=== PATIENT | female | born 1950 | race Caucasian/White ===

== ENCOUNTER → 2018-02-16 | Outpatient (CLI) | payer MEDICARE ==
[~2018-02-16] MED LIST: ASPI1TAB57 PO; LOSA50TA2 PO; PERC5TAB12 PO; ZOFR8TAB4 SL
[2018-02-16 13:50] LABS: BACTERIA, URINE OCC /hpf; BILIRUBIN, URINE NEG (NEG); BLOOD, URINE TRACE (NEG); GLUCOSE,URINE NEG (NEG); KETONE, URINE NEG (NEG); NITRITE,URINE NEG (NEG); SQUAMOUS EPITHELIAL CELL URINE 1 /hpf (0-5); URINE COLOR LIGHT-YELLOW (YELLW/STRAW); URINE LEUKOCYTE ESTERASE TRACE (NEG)
[2018-02-16 13:50] LABS: AUTOMATED NEUTROPHIL # 3.8 TH/MM3 (1.8-7.7); BASOPHIL % 0.7 % (0.0-2.0); EOSINOPHIL # 0.2 TH/MM3 (0-0.4); EOSINOPHIL % 2.6 % (0.0-4.0); HEMATOCRIT 41.3 % (35.0-46.0); HEMOGLOBIN 14.1 GM/DL (11.6-15.3); LYMPH % 33.3 % (9.0-44.0); LYMPHOCYTE # 2.3 TH/MM3 (1.0-4.8); MEAN CELL VOLUME 91.5 FL (80.0-100.0); MEAN CORPUSCULAR HEMOGLOBIN 31.2 PG (27.0-34.0); MEAN CORPUSCULAR HGB CONC 34.1 % (32.0-36.0); MONO % 8.7 % (0.0-8.0); MONOCYTE # 0.6 TH/MM3 (0-0.9); NEUT % 54.7 % (16.0-70.0); PLATELET COUNT 386 TH/MM3 (150-450); RED BLOOD COUNT 4.51 MIL/MM3 (4.00-5.30)
--- NOTE | 2018-02-17 16:08 | EKG ---
Date Performed: 02/16/2018 Time Performed: 12:54:26 PTAGE: 67 years EKG: SINUS BRADYCARDIA LEFT AXIS DEVIATION LOW QRS VOLTAGE IN PRECORDIAL LEADS INCOMPLETE RIGHT BUNDLE BRANCH BLOCK ABNORMAL ECG NO PREVIOUS TRACING DOCTOR: Jamal Sequeira Interpretating Date/Time 02/17/2018 16:07:28
== END ==
LOC: CPRE 12:37
PROVIDERS: ATTEND Obstetrics & Gynecology
DX: Z01.812 Encounter for preprocedural laboratory examination (principal); Z01.810 Encounter for preprocedural cardiovascular examination; N85.00 Endometrial hyperplasia, unspecified; D39.12 Neoplasm of uncertain behavior of left ovary; R94.31 Abnormal electrocardiogram [ECG] [EKG]
CPT/HCPCS: 36415; 80051; 81001; 85025; 93005

== ENCOUNTER 2018-02-18 10:29 | Observation (INO) | payer MEDICARE ==
--- NOTE | 2018-02-17 10:01 | MH ---
cc: Benja Jo MD DATE OF ADMISSION: 02/18/2018 ADMITTING DIAGNOSIS: Adnexal mass, left side, with endometrial thickening. HISTORY OF PRESENT ILLNESS: The patient is a 67-year-old white female, para 3-0-0-3, had an episode of right lower quadrant pain last summer that resolved. She saw her family doctor, Dr. Black, who obtained an ultrasound on 01/02/2018, which showed the uterus measuring 9.4 cm, endometrial thickening to 14 mm, and a complex left adnexal mass about 4.3 cm. She was seen by me for evaluation on 01/26/2018 and is now admitted for surgical therapy. PAST MEDICAL HISTORY: Previous surgery: Laparoscopic cholecystectomy in 2017. MEDICATIONS: For blood pressure control. ALLERGIES: TO TRANSFUSIONS: None. SERIOUS MEDICAL ILLNESS: History of hypertension. OBSTETRIC HISTORY: Three vaginal deliveries. SOCIAL HISTORY: Retired, 30 years. REVIEW OF SYSTEMS: Pertinent for being hard of hearing. ALCOHOL: Occasional. TOBACCO: None. DRUGS: None. FAMILY HISTORY: Noncontributory. PHYSICAL EXAMINATION: A well-nourished, well-developed white female. VITAL SIGNS: Stable. HEENT: Normal. CHEST: Clear. HEART: Regular rate. BREASTS: Symmetrical. ABDOMEN: Benign. PELVIC: Vagina is atrophic. Cervix normal. Uterus is normal size, shape. Adnexa nonpalpable. ASSESSMENT: As above. She is now admitted for dilatation and curettage, frozen section, laparoscopy, possible laparoscopic supracervical hysterectomy/bilateral salpingo-oophorectomy, possible total abdominal hysterectomy/bilateral salpingo-oophorectomy. On all significant procedures, the risks and potential complications and possible need for this treatment pending findings. Patient would like to proceed. MD DIDIER Phillips/NAIF , 09:40 AM , 09:59 AM NARCISO
[~2018-02-18] VITALS: Ht 157.5 cm; Wt 74.3 kg
[~2018-02-18 10:29] MED LIST changes: -PERC5TAB12 PO; -ZOFR8TAB4 SL
[2018-02-18] MEDS ORDERED: LACTATED RINGER'S 1000 ML IV PRN (11:00)
[2018-02-18] MEDS ORDERED: POVIDONE IODINE 5% (ANTISEPSIS KIT) 4 APPLICATIONS EACH NARE PRN (11:00)
[2018-02-18] MEDS ORDERED: METOPROLOL TARTRATE 25 MG TAB PO PRN (11:00)
[2018-02-18] MEDS ORDERED: SODIUM CHLORID 0.9% 500 ML IV PRN (11:00)
[2018-02-18] MEDS ORDERED: CHLORHEXIDINE GLUCONATE 2 % 1 PACK (2 CLOTHS) TOPICAL PRN (11:00)
[2018-02-18] MEDS ORDERED: ACETAMINOPHEN 1000 MG/100 ML 100 ML IV ONE (11:00)
[2018-02-18] MEDS ORDERED: BUPIVACAINE/EPINEPHRINE 0.25% 50 ML VIAL ONE (11:54)
[2018-02-18] MEDS ORDERED: PROPOFOL 200 MG/20 ML AMP IV ONE (12:00)
[2018-02-18] MEDS ORDERED: GLYCOPYRROLATE 1 MG/5 ML SYRINGE IV PUSH ONE ×2 (12:00)
[2018-02-18] MEDS ORDERED: ePHEDrine/NS 25 MG/5 ML SYRINGE IV ONE (12:00)
[2018-02-18] MEDS ORDERED: ESMOLOL HCL 100 MG/10 ML VIAL IV ONE (12:00)
[2018-02-18] MEDS ORDERED: LIDOCAINE HCL 1% PF 5 ML SYRINGE OTHER ONE (12:00)
[2018-02-18] MEDS ORDERED: KETOROLAC TROMETHAMINE 30 MG/ML (IVP) VIAL IV PUSH ONE (12:00)
[2018-02-18] MEDS ORDERED: PHENYLEPH/NS 1000 MCG/10 ML SYR IV ONE ×2 (12:00)
[2018-02-18] MEDS ORDERED: ROCURONIUM INJ 50 MG/5 ML SYRINGE IV PUSH ONE (12:00)
[2018-02-18] MEDS ORDERED: CEFAZOLIN INJ 2,000 MG in SODIUM CHLORIDE 0.9% INJ 100 ML IV ONE (12:00)
[2018-02-18] MEDS ORDERED: ONDANSETRON HCL 4 MG/2 ML VIAL IV ONE (12:00)
[2018-02-18] MEDS ORDERED: DEXAMETHASONE SOD PHOS 4 MG/ML VIAL IV ONE (12:00)
[2018-02-18] MEDS ORDERED: BUPIVACAINE LIPOSOME PF 1.3% 20 ML VIAL ONE (12:35)
[2018-02-18] MEDS ORDERED: SODIUM CHLORIDE 0.9% INJ 10 ML ONE (12:36)
[2018-02-18] MEDS: KETOROLAC TROMETHAMINE 30 MG/ML (IVP) VIAL IVP SCH ×2 (14:15→21:34)
[2018-02-18] MEDS ORDERED: ONDANSETRON HCL 4 MG/2 ML VIAL IV PUSH PRN (14:45)
[2018-02-18] MEDS ORDERED: HYDROmorphone HCL PF 2 MG/ML VIAL IV PUSH PRN (14:45)
[2018-02-18] MEDS ORDERED: diphenhydrAMINE HCL 25 MG CAP PO PRN (14:45)
[2018-02-18] MEDS: DOCUSATE SODIUM 100 MG CAP PO SCH (14:45)
[2018-02-18] MEDS ORDERED: DO NOT ADM ANY ANTICOAGULANT DRUGS PRN (14:50)
[2018-02-18] MEDS ORDERED: *morphine SULFATE 4 MG/ML PERIprocedure ONLY ONE (14:56)
[2018-02-18] MEDS ORDERED: MIDAZOLAM HCL 2 MG/2 ML VIAL ONE (14:59)
[2018-02-18] MEDS: D5-1/2 NS + KCL 20 MEQ INJ 1,000 ML IV SCH ×2 (15:00→21:34)
[2018-02-18] MEDS ORDERED: ACETAMINOPHEN 1000 MG/100 ML VIAL IV SCH (15:00)
--- NOTE | 2018-02-18 15:00 | MP ---
cc: Benja Jo MD DATE OF OPERATION: 02/18/2018 PREOPERATIVE DIAGNOSIS: Left adnexal mass, endometrial thickening. POSTOPERATIVE DIAGNOSIS: Left adnexal mass, endometrial thickening with final pathology pending. DETAILS OF PROCEDURE: Hysteroscopy, D and C, laparoscopy with a LASH/BSO. ANESTHESIA: General ET. SURGEON: Benja Jo MD MANAGER ACCOUNT MANAGEMENT: NIMESH Delgado ESTIMATED BLOOD LOSS: About 100 mL. INTRAVENOUS FLUIDS: 900 mL crystalloid. OBJECTIVE FINDINGS: Following induction of adequate general endotracheal anesthesia, the patient was prepped and draped supine on the operating table in dorsal lithotomy position in sterile fashion with the bladder being drained by [facility] catheterization. Exam under anesthesia revealed about a 10-week sized uterus with a left adnexal mass that was mobile. A heavy weighted speculum was placed in posterior vagina, the anterior lip of the cervix grasped with a single-tooth tenaculum. The cervix and uterus sounded to 8 cm. The cervix was dilated to #18 Blas dilator. The hysteroscope was passed, revealed normal endocervix with at least 3 endometrial polyps. The scope withdrawal and endocervical curettings obtained with a small serrated curette, the endometrium with a small sharp curet. Polyp forceps were used to remove the polyps and they were sent for permanent frozen section. The tenaculum sites were sutured with 2-0 chromic. The vaginal instruments were removed. The combine operator's gloves were changed. The abdomen was opened through a 3 cm curving infraumbilical incision using a knife cut down through the skin to the fascia. The fascia was opened transversely, the rectus muscle split in the midline and the peritoneum opened with blunt pressure fingertip. The mini GelPort was placed. Laparoscope was inserted, a 5 port placed in the left lower quadrant, AirSeal port in right lower quadrant. Pelvic contents revealed a firm multilobular left ovary with some old hemorrhage. The uterus showed fibroids. The right tube and ovary were normal. Working first on the left, the harmonic scalpel was used to take the left ovarian vessels, left round ligament, left uteroovarian pedicle. The Left ovary was sent in a pouch. Frozen section initial returned benign. The harmonic scalpel now used to take the left uterine vessels, left side of the bladder flap, left broad ligament. On the right side the harmonic scalpel was used take the right ovarian vessels, right mesosalpinx, right round ligament, right broad ligament, right side of the bladder flap and right uterine vessels. Frozen section returned benign on the left ovary. Harmonic scalpel was now used to amputate the fundus from the cervix. A pouch was inserted to extract the uterus and right tube and ovary. One area of bleeding on the left side of the cervix was controlled with harmonic scalpel. Irrigation performed. No bleeding was evident. Low pressure tests were done in the Trendelenburg and neutral position. The ureter was inspected, had good peristalsis. The operative site was now coated with Evicel, the GelPort removed and the peritoneum sutured with a running stitch of 2-0 Vicryl. The fascia was closed with a running, locking stitch of 0 Vicryl, corners to the midline and tied. The subcu was closed with 3-0 Vicryl, the skin with a running subcuticular 3-0 Monocryl. The scope was now reinserted through the lower ports and used to inspect the GelPort site which was well closed. No entrapment of tissue. The pelvis was checked again and there was no bleeding, so the scope was removed, gas was allowed to escape, the small ports were removed and sutured with 3-0 Monocryl. Dermabond was applied. The patient will now receive a TAP block and go to the recovery room. All counts were correct. MD DIDIER Phillips/ZACH , 02:30 PM , 02:58 PM
[2018-02-18 16:00] VITALS: O2SAT 96
[2018-02-18] MEDS ORDERED: ONDANSETRON INJ 8 MG in DEXTROSE 5% IN WATER INJ 50 ML IV PRN ×2 (16:00)
[2018-02-18] MEDS ORDERED: PROMETHAZINE INJ 25 MG/ML VIAL IM PRN (16:00)
[2018-02-18 16:40] VITALS: BP 133/61; PULSE 53; RESP 18; TEMP 97.5
[2018-02-18] MEDS: ACETAMINOPHEN 1000 MG/100 ML VIAL IV SCH (18:37)
[2018-02-18 20:00] VITALS: BP 111/58; PULSE 55; RESP 18; TEMP 97.8
[2018-02-18 20:48] LABS: HEMATOCRIT 36.5 % (35.0-46.0); HEMOGLOBIN 12.5 GM/DL (11.6-15.3)
[2018-02-18] MEDS ORDERED: ZOLPIDEM TARTRATE 5 MG TAB PO PRN (21:00)
[2018-02-19 00:03] VITALS: BP 121/52; PULSE 58; RESP 18; TEMP 97.6
[2018-02-19] MEDS: DOCUSATE SODIUM 100 MG CAP PO SCH (03:46)
[2018-02-19] MEDS: KETOROLAC TROMETHAMINE 30 MG/ML (IVP) VIAL IVP SCH ×2 (03:47→09:12)
[2018-02-19] MEDS: ACETAMINOPHEN 1000 MG/100 ML VIAL IV SCH (03:47)
[2018-02-19 04:08] VITALS: BP 122/54; PULSE 61; RESP 18; TEMP 98.2
[2018-02-19 06:06] LABS: AUTOMATED NEUTROPHIL # 9.2 TH/MM3 (1.8-7.7); BASOPHIL % 0.1 % (0.0-2.0); EOSINOPHIL % 0.2 % (0.0-4.0); HEMATOCRIT 35.7 % (35.0-46.0); HEMOGLOBIN 12.4 GM/DL (11.6-15.3); LYMPHOCYTE # 1.8 TH/MM3 (1.0-4.8); MEAN CELL VOLUME 89.4 FL (80.0-100.0); MEAN CORPUSCULAR HEMOGLOBIN 31.1 PG (27.0-34.0); MEAN CORPUSCULAR HGB CONC 34.8 % (32.0-36.0); MEAN PLATELET VOLUME 7.7 FL (7.0-11.0); MONO % 6.7 % (0.0-8.0); MONOCYTE # 0.8 TH/MM3 (0-0.9); PLATELET COUNT 385 TH/MM3 (150-450); RED CELL DISTRIBUTION WIDTH 12.9 % (11.6-17.2); WHITE BLOOD COUNT 11.8 TH/MM3 (4.0-11.0)
[2018-02-19 06:22] LABS: CALCIUM 7.9 MG/DL (8.5-10.1); CREATININE 0.59 MG/DL (0.50-1.00)
[2018-02-19] MEDS ORDERED: LOSARTAN 50 MG TAB PO SCH (09:00)
[2018-02-19] MEDS ORDERED: HYDROCHLOROTHIAZIDE 12.5 MG CAP PO SCH (09:00)
[2018-02-19] MEDS ORDERED: ZOFR8TAB4 SL (12:54)
[2018-02-19] MEDS ORDERED: PERC5TAB12 PO (12:54)
== END 2018-02-19 13:24 | disposition home or self-care (01) ==
LOC: HSDC 10:29 → EDUNIT# 12:45 → HSDI 14:34 → H1EA 16:22
PROVIDERS: ADMIT Obstetrics & Gynecology; ATTEND Obstetrics & Gynecology
DX: R93.8 Abnormal findings on diagnostic imaging of other specified body structures (principal); N84.0 Polyp of corpus uteri; N85.01 Benign endometrial hyperplasia; H91.90 Unspecified hearing loss, unspecified ear
CPT/HCPCS: 00840; 58542; 80048; 85014; 85018; 85025; 88305; 88307; 88331; 94150; 96365; 96375; 96376; C9290; G0378; J0131; J0690; J1100; J1885; J2250; J2270; J2370; J2405; J3010; J3480